=== PATIENT | female | born 1955 | race Caucasian/White ===

== ENCOUNTER 2025-06-28 17:43 | Emergency (ER) | payer MEDICARE, BC ==
[~2025-06-28] VITALS: Ht 162.6 cm; Wt 79.8 kg
[2025-06-28] MEDS ORDERED: TRAMADOL HCL 50 MG TABLET ONE (19:07)
[2025-06-28] MEDS ORDERED: IBUPROFEN 600 MG TABLET ONE (19:08)
[2025-06-28] MEDS: TRAMADOL HCL 50 MG TABLET PO ONE (19:10)
[2025-06-28] MEDS: IBUPROFEN 600 MG TABLET PO ONE (19:10)
[2025-06-28] MEDS ORDERED: TRAM50TA2 PO (19:14)
[2025-06-28] MEDS ORDERED: IBUP-1955 PO (19:14)
[2025-06-28 19:37] VITALS: BP 136/78; TEMP 98.4; O2SAT 99
== END 2025-06-28 19:37 | disposition home or self-care (01) ==
LOC: ER 18:28
DX: S52.614A Nondisplaced fracture of right ulna styloid process, initial encounter for closed fracture (principal); S52.591A Other fractures of lower end of right radius, initial encounter for closed fracture; W01.0XXA Fall on same level from slipping, tripping and stumbling without subsequent striking against object, initial encounter; Y93.89 Activity, other specified; Y92.89 Other specified places as the place of occurrence of the external cause; Y99.9 Unspecified external cause status
CPT/HCPCS: 73110